=== PATIENT | female | born 1995 | race Caucasian/White ===

== ENCOUNTER 2017-12-10 17:01 | Inpatient (IN) | payer OTHER ==
[2017-12-10] VITALS (12 sets, daily range): BP systolic 104–148; BP diastolic 57–81
[~2017-12-10] VITALS: Ht 165.1 cm; Wt 72.3 kg
[2017-12-10] MEDS ORDERED: IRON325 M1 PO (17:34)
[2017-12-10] MEDS ORDERED: B-COMPLEX-VITA1 EACH PO (17:35)
[2017-12-10 18:01] LABS: BASOPHIL (%) 0.2 % (0-1); EOSINOPHIL (%) 0.3 % (0-5); HEMATOCRIT 34.3 % (36.0-46.0); HEMOGLOBIN 12.1 G/DL (11.9-15.5); IMMATURE GRANULOCYTE (%) 0.4 % (0.0-0.7); LYMPHOCYTE (%) 18.7 % (15-42); LYMPHOCYTE COUNT 2.2 K/uL (1.0-2.8); MCHC 35.3 G/DL (30.0-36.0); MCV 90.7 FL (83-99); MONOCYTE COUNT 0.6 K/uL (0-0.8); NEUTROPHIL (%) 75.4 % (45-76); NEUTROPHIL COUNT 8.7 K/uL (1.8-6.4); PLATELET COUNT 170 K/uL (156-360); RED BLOOD COUNT 3.78 M/uL (3.80-5.20); WHITE BLOOD COUNT 11.6 K/uL (4.1-10.2)
[2017-12-11] VITALS (15 sets, daily range): BP systolic 106–129; BP diastolic 57–80
[2017-12-11] MEDS ORDERED: IBUPROFEN800 MG PO (11:52)
[2017-12-12 05:48] LABS: BASOPHIL (%) 0.2 % (0-1); EOSINOPHIL (%) 0.9 % (0-5); EOSINOPHIL COUNT 0.1 K/uL (0-0.3); HEMATOCRIT 29.1 % (36.0-46.0); HEMOGLOBIN 9.9 G/DL (11.9-15.5); IMMATURE GRANULOCYTE (%) 0.6 % (0.0-0.7); LYMPHOCYTE (%) 20.5 % (15-42); LYMPHOCYTE COUNT 2.6 K/uL (1.0-2.8); MCH 31.7 PG (29.0-34.0); MCV 93.3 FL (83-99); MONOCYTE (%) 7.5 % (3-12); NEUTROPHIL (%) 70.3 % (45-76); NEUTROPHIL COUNT 8.9 K/uL (1.8-6.4); PLATELET COUNT 122 K/uL (156-360); RBC DIS.WIDTH-SD 41.3 % (39-53); RED BLOOD COUNT 3.12 M/uL (3.80-5.20); WHITE BLOOD COUNT 12.7 K/uL (4.1-10.2)
[2017-12-12 07:56] VITALS: BP 111/70
[2017-12-12 14:46] VITALS: BP 121/56
== END 2017-12-13 16:40 | disposition home or self-care (01) | DRG 775 ==
LOC: LDRP-OP 17:01 → 2WEST 17:03 → LDRP-OP 01-02 08:57
PROVIDERS: Midwife; Nurse Practitioner
PROC: 3E0P7GC Introduction of Other Therapeutic Substance into Female Reproductive, Via Natural or Artificial Opening (ICD-10-PCS; 2017-12-10)
PROC: 10E0XZZ Delivery of Products of Conception, External Approach (ICD-10-PCS; principal; 2017-12-11)
PROC: 0UQGXZZ Repair Vagina, External Approach (ICD-10-PCS; 2017-12-11)
PROC: 3E0S3BZ Introduction of Anesthetic Agent into Epidural Space, Percutaneous Approach (ICD-10-PCS; 2017-12-11)
PROC: 00HU33Z Insertion of Infusion Device into Spinal Canal, Percutaneous Approach (ICD-10-PCS; 2017-12-11)
DX: O48.0 Post-term pregnancy (principal); D62 Acute posthemorrhagic anemia; O99.12 Other diseases of the blood and blood-forming organs and certain disorders involving the immune mechanism complicating childbirth; O71.4 Obstetric high vaginal laceration alone; Z37.0 Single live birth; Z3A.41 41 weeks gestation of pregnancy; O99.824 Streptococcus B carrier state complicating childbirth; F41.9 Anxiety disorder, unspecified; L30.9 Dermatitis, unspecified; O76 Abnormality in fetal heart rate and rhythm complicating labor and delivery; O99.02 Anemia complicating childbirth; O69.1XX1 Labor and delivery complicated by cord around neck, with compression, fetus 1; O99.72 Diseases of the skin and subcutaneous tissue complicating childbirth
CPT/HCPCS: 85025; C1755; G0378; J2540; J3010; J7120